=== PATIENT | male | born 1965 | race Caucasian/White ===

== ENCOUNTER 2022-05-19 13:41 | Outpatient (REF) | payer OTHER, SELFPAY ==
[2022-05-19 15:57] LABS: Abs Immature Grans 0.05 10^3/uL (0.0-0.06); Absolute Basophil Count 0.06 10^3/uL (0.0-0.2); Absolute Eosinophil Count 0.19 10^3/uL (0.0-0.7); Absolute Lymphocyte Count 1.47 10^3/uL (1.2-3.4); Absolute Monocyte Count 0.63 10^3/uL (0.1-0.8); Absolute Neutrophil Count 4.05 10^3/uL (1.2-6.7); Basophils % 0.9; Eosinophils % 2.9; HCT 54.5 % (40.0-50.0); HGB 18.5 g/dL (13.5-17.5); Immature Grans % 0.8; Lymphocytes % 22.8; MCH 32.4 pg (27.0-33.0); MCHC 33.9 % (32.0-36.0); MCV 95 fL (80-95); MPV 10.8 fL (8.0-11.0); Monocytes % 9.8; Neutrophils % 62.8; Platelet Count 157 10^3/uL (130-400); RBC 5.71 10^6/uL (4.36-5.78); RDW 11.9 % (11.8-14.1); WBC 6.45 10^3/uL (4.4-10.8)
[2022-05-19 17:30] LABS: ALT 47 U/L (16-63); AST 18 U/L (15-37); Albumin 3.8 g/dL (3.4-5.0); Alkaline Phosphatase 80 U/L (46-116); Anion Gap 10.1 mmol/L (3-11); BUN 20 mg/dL (7-18); Bilirubin, Total 0.4 mg/dL (0.2-1.0); CO2 24.9 mmol/L (21.0-32.0); CREATININE 0.9 mg/dL (0.70-1.30); Calcium 8.9 mg/dL (8.5-10.1); Calculated LDL 122 mg/dL (<100); Chloride 106 mmol/L (98-107); Cholesterol 200 mg/dL (<200); Estimated GFR 98.38 (mL/min/1.73m2); Glucose 109 mg/dL (74-106); HDL Cholesterol 49 mg/dL (40-60); Potassium 4.5 mmol/L (3.5-5.1); Sodium 141 mmol/L (136-145); Total Protein 7.4 g/dL (6.4-8.2); Triglyceride 145 mg/dL (<150)
== END 2022-05-19 13:42 | disposition home or self-care (01) ==
LOC: NCHCN 13:41
PROVIDERS: Visit Provider Family Medicine
DX: R03.0 Elevated blood-pressure reading, without diagnosis of hypertension (principal); M54.59 Other low back pain; R79.89 Other specified abnormal findings of blood chemistry
CPT/HCPCS: 80053; 80061; 85025

== ENCOUNTER 2022-06-28 15:08 | Outpatient (CLI) | payer OTHER, SELFPAY ==
--- NOTE | 2022-06-28 14:45 | DI.RAD_ITS ---
Exam(s) XR PELVIS AP EXAM: XR PELVIS AP CLINICAL HISTORY: THR planning. TECHNIQUE: 2D digital imaging was performed. COMPARISON: CR from 08/17/2021 FINDINGS: BONES: No acute fracture is present. No bony destructive lesion is seen. JOINTS: No dislocation present. Moderately severe degenerative changes are seen in the right hip judith acterized by joint space narrowing and bony hypertrophy. There are stable marked degenerative change s of the left hip with loss of the joint space and bony hypertrophy. There also appears to be some v olume loss in the left femoral head. This is unchanged. The symphysis pubis is unremarkable. SOFT TISSUE: Normal. IMPRESSION: Stable degenerative changes of the hips, left greater than right. DATA REPOSITORY: RADIATION DOSE DELIVERED:
== END 2022-06-28 15:09 | disposition home or self-care (01) ==
LOC: DIORS 15:08
PROVIDERS: PCP Family Medicine; Visit Provider Physician Assistant
DX: M16.12 Unilateral primary osteoarthritis, left hip (principal); M25.552 Pain in left hip
CPT/HCPCS: 72170

== ENCOUNTER 2022-07-09 01:32 | Outpatient (CLI) | payer OTHER, SELFPAY ==
[2022-07-09 13:13] LABS: HCT 49.7 % (40.0-50.0); HGB 17.2 g/dL (13.5-17.5); MCH 33.1 pg (27.0-33.0); MCHC 34.6 % (32.0-36.0); MCV 96 fL (80-95); MPV 9.6 fL (8.0-11.0); Platelet Count 152 10^3/uL (130-400); RDW 12.1 % (11.8-14.1); RDW-SD 43.1 fL; WBC 6.13 10^3/uL (4.4-10.8)
[2022-07-09 13:57] LABS: Anion Gap 12.1 mmol/L (3-11); BUN 19 mg/dL (7-18); CO2 25.9 mmol/L (21.0-32.0); Calcium 8.7 mg/dL (8.5-10.1); Chloride 107 mmol/L (98-107); Glucose 125 mg/dL (74-106); Sodium 145 mmol/L (136-145)
== END 2022-07-09 01:33 | disposition home or self-care (01) ==
LOC: LBO 01:32
PROVIDERS: PCP Family Medicine; Visit Provider Student in an Organized Health Care Education/Training Program
DX: M25.552 Pain in left hip (principal); M16.12 Unilateral primary osteoarthritis, left hip; Z01.818 Encounter for other preprocedural examination; Z01.812 Encounter for preprocedural laboratory examination
CPT/HCPCS: 36415; 80048; 85027

== ENCOUNTER 2022-07-14 05:44 | Day surgery (SDC) | payer OTHER, SELFPAY ==
--- NOTE | 2022-07-12 16:17 | PDOC.ANES ---
Date of service: 07/12/22 Time of Service: 16:17 Anesthesia Note Report Anesthesia Note: Reached out to this patient today via phone call as preop RN let us know he was having some anxiety about DOS. Patient did let me know he was anxious about it but did not have any specific anesthesia questions or concerns at this time. I recommended that the patient should write down any questions or concerns as they came up and to bring them with him on DOS. Patient verified he understood and that we will be seeing him DOS.
[2022-07-14] VITALS (11 sets, daily range): BP systolic 106–154; BP diastolic 79–112; PULSE 56–75; RESP 15–20; TEMP 36.2–36.6; O2SAT 94–97; BMI 28.4
--- NOTE | 2022-07-14 06:26 | W.ANESPRE ---
General Info Date of Service Date Performed: 07/14/22 Height: 5 ft 9 in Weight: 87.4 kg Body Mass Index (BMI): 28.4 Surgical Procedure: Operation Date: 07/14/22 08:05 Proposed Procedure Side Surgeon p Hip Total Hip Anterior, ACTIS (08/04 High) Left Angel Mantilla MD Meds Allergies and Home Medications Allergies Allergy/AdvReac Type Severity Reaction Status Date / Time No Known Allergies Allergy Verified 07/14/22 06:23 Home Medication Medication Instructions Recorded clobetasol 0.05 % topical ointment topical 07/12/22 acetaminophen 500 mg tablet 1,000 mg PO TID #90 tabs 07/14/22 aspirin 81 mg tablet,delayed 81 mg PO BID #60 tabs 07/14/22 release celecoxib 200 mg capsule 200 mg PO BID #60 caps 07/14/22 dexamethasone 4 mg tablet 4 mg PO DAILY #2 tabs 07/14/22 oxycodone 5 mg tablet 5 mg PO Q4H PRN pain #20 tabs 07/14/22 pantoprazole 40 mg tablet,delayed 40 mg PO DAILY #30 tabs 07/14/22 release Current Visit Medications: Current Medications Generic Name Dose Route Start Last Admin Trade Name Freq PRN Reason Stop Dose Admin Acetaminophen 1,000 mg 07/14/22 06:00 Acetaminophen 500 Mg Tab PO 07/14/22 16:00 PREOP ABDI Celecoxib 400 mg 07/14/22 06:00 Celecoxib 200 Mg Cap PO 07/14/22 16:00 PREOP ABDI Tranexamic Acid 1,000 mg/ 60 mls @ 360 mls/hr 07/14/22 06:00 Sodium Chloride IV 07/14/22 16:00 PREOP ABDI Ringer's Solution 1,000 mls @ 80 mls/hr 07/14/22 06:00 IV 08/12/22 23:59 INFUSION ABDI Cefazolin Sodium/Dextrose 2 gm in 50 mls @ 100 mls/hr 07/14/22 06:00 Ancef Duplex IVPB 08/12/22 23:59 PREOP ABDI IV Miscellaneous Supplies 1 each 07/14/22 06:00 Iv Access IV 08/12/22 23:59 DIRECTED ABDI Sodium Chloride 0 ml 07/14/22 06:00 Normal Saline Flush 10 Ml Syr IV 08/12/22 23:59 PRN PRN Sodium Chloride 0 ml 07/14/22 06:00 Normal Saline 10 Ml Vial IJ 08/12/22 23:59 DIRECTED PRN Sterile Water 0 ml 07/14/22 06:00 Water,Injection,Sterile 10 Ml Vial IJ 08/12/22 23:59 DIRECTED PRN PFSH Active Problems Active Problems: Problem Status Onset Code Osteoarthritis of left hip M16.12 Medical History Medical History Chronic low back pain History of skull fracture Psoriasis Psoriatic arthritis Surgical History Surgical History (Updated 07/14/22 @ 06:26 by Lucia Malone) History of shoulder surgery Left Tobacco Smoking/Tobacco Use Status: Current-Occasional Tobacco Type: cigarettes Alcohol Alcohol Intake: current Alcohol intake frequency: a few times a week Substance Use Substance use: Daily Substance use type: marijuana Details: Per patient he uses it regularly for the hip pain. Vital Signs and Lab Results Lab Results Blood Type / Crossmatch: No Data to Display Complete Blood Count: White Blood Count 6.13 10^3/uL (4.4-10.8) 07/09/22 13:10 Red Blood Count 5.20 10^6/uL (4.36-5.78) 07/09/22 13:10 Hemoglobin 17.2 g/dL (13.5-17.5) 07/09/22 13:10 Hematocrit 49.7 % (40.0-50.0) 07/09/22 13:10 Platelet Count 152 10^3/uL (130-400) 07/09/22 13:10 Complete Metabolic Panel: Sodium 145 mmol/L (136-145) 07/09/22 13:10 Potassium 4.0 mmol/L (3.5-5.1) 07/09/22 13:10 Chloride 107 mmol/L (98-107) 07/09/22 13:10 Carbon Dioxide 25.9 mmol/L (21.0-32.0) 07/09/22 13:10 BUN 19 mg/dL (7-18) H 07/09/22 13:10 Creatinine 1.0 mg/dL (0.70-1.30) 07/09/22 13:10 Est GFR (CKD-EPI 2020) 86.70 (mL/min/1.73m2) 07/09/22 13:10 Calcium 8.7 mg/dL (8.5-10.1) 07/09/22 13:10 Glucose 125 mg/dL (74-106) H 07/09/22 13:10 Liver Function Panel: No Data to Display Coagulation Panel: No Data to Display Cardiac Panel: No Data to Display Arterial Blood Gas: No Data to Display Venous Blood Gas: No Data to Display Pancreas Panel: No Data to Display Thyroid Panel: No Data to Display Infectious Disease: No Data to Display Blood Cultures: No Data to Display Toxicology Panel: No Data to Display Anesthesia Assessment and Plan Anesthesia History Personal History: No History of Anesthesia Complications Family History: Family History Unknown Exercise Tolerance Exercise Tolerance: Metabolic Equivalents>4 Pertinent Negatives Pertinent Negatives: No Symptoms of GERD, No Major Cardiovascular Symptoms or Complaints, No Major Pulmonary Symptoms or Complaints and No History of CVA/TIA Cardiac & Pulmonary Exam Cardiac Exam: Normal S1/S2 Heart Sounds Pulmonary Exam: Clear Bilateral Breath Sounds Implantable Cardiac Device Does patient have a Pacemaker or an ICD?: No Airway Exam Known Difficult Airway: No Mallampati Class: 2 Mouth Opening: Normal (> 3cm) Thyromental Distance: Greater than 3 cm Neck Range of Motion: Full ROM Neck Circumference: Normal Teeth Condition: Generalized Poor Dentition ASA Classification ASA Score: ASA 2 Emergency Case?: No NPO Status NPO Status: NPO Clears >2 hours, Solids >8 hours Anesthesia Plan Resuscitation Status: Full Code Anesthesia Technique: General Anesthesia Airway Planned: Natural Airway Monitors Used: Standard Monitors
[2022-07-14] MEDS: Acetaminophen 500 MG TAB 1000 MG PO (06:45)
[2022-07-14] MEDS: Celecoxib 200 MG CAP 400 MG PO (06:46)
[2022-07-14] MEDS: Lactated Ringers 1,000 ML 80 ML IV (07:00)
--- NOTE | 2022-07-14 07:24 | W.PM.DSUDISC ---
Date of service: 07/14/22 Time of Service: 07:24 Discharge Plan Disposition Patient Disposition: Home Condition: Good Discharge Details Reason For Visit: L RUTHY Attending Provider: Angel Mantilla Primary Care Provider: Brad Ritter Home Meds and New Rx's Prescriptions: New celecoxib 200 mg capsule 200 mg PO BID Qty: 60 0RF aspirin 81 mg tablet,delayed release (DR/EC) 81 mg PO BID Qty: 60 0RF acetaminophen 500 mg tablet 1,000 mg PO TID Qty: 90 3RF pantoprazole 40 mg tablet,delayed release (DR/EC) 40 mg PO DAILY Qty: 30 0RF dexamethasone 4 mg tablet 4 mg PO DAILY Qty: 2 0RF oxycodone 5 mg tablet 5 mg PO Q4H MDD 6 tabs PRN (Reason: pain) Qty: 20 0RF Continued clobetasol 0.05 % ointment TOPICAL Patient Comments: APPLY TO AFFECTED SKIN ON THE BODY TWICE DAILY TUESDAY-TUESDAY, STOP ON , REPEAT NEEDED Discontinued naproxen 250 mg tablet 250 mg PO BID PRN Discharge Instructions Additional Instructions: Total Hip Discharge Instructions Activity: The most important activity is to walk. You should try to take short walks a few times a day. You have no restrictions on movement or positioning, but do not try to force what you do. You will find some stiffness and weakness with hip flexion (lifting your knee). Do not try to strengthen this too early, continue to practice walking and stairs and this will come. - Outpatient physical therapy can be helpful to help return you to a normal gait and improve your flexibility and strength. This can start around 2 weeks. For some patients, it?s not necessary. Usually this is determined at the time of discharge or at the first post-operative visit. - You should wear the BALAJI hose on both legs for 2 weeks. Dressing: Keep the surgical dressing in place for at least one week. After the first week it may be removed and replace with light gauze and tape or nothing. It may get wet after 3 days but avoid soaking the dressing. If it gets wet, just lightly pat dry. It is important to always keep some gauze between skin folds, especially when you are sitting. Spend some time with the wound exposed when you are lying flat as the incision does wrinkle onto itself. Medications: - You should take Tylenol and an anti-inflammatory Celebrex as your primary pain control medications. If the Celebrex is too expensive or not covered, please call the office for another alternative (Advil/Ibuprofen or Naproxen/Aleve). - You have been prescribed a stronger pain medication Oxycodone for breakthrough pain, take as needed as prescribed. - You have also been prescribed a stomach acid reduction agent Pantoprozole to help reduce stomach acid and reflux. - You have also been prescribed Decadron to help with post-operative nausea and pain. You will take this for two days starting tomorrow. - You will be taking Aspirin 81mg twice a day for DVT prevention unless instructed otherwise. - If you have constipation you should take Colace or Miralax (both [id number]). It takes most people 3-4 days to have a bowel movement. Follow-up: 2 weeks If you have any acute concerns or questions, please do not hesitate to contact the office at [phone]. You may contact Dr. Mantilla with any questions after hours through the hospital at [phone] or on his cell phone at [phone]. Referrals: Angel Mantilla MD [ [facility] STAFF PHYSICIAN] - Equipment/Supplies: Walker Activity:: Activity as Tolerated Shower/Bathe:: 72 hours Diet:: As Tolerated Discharge Orders Discharge Orders: Discharge Order (Routine); Ordered 07/14/22 Ordered By: Warren Elizondo DS: Diagnosis Discharge Diagnosis (1) Osteoarthritis of left hip: Status: Acute
[2022-07-14] MEDS: ceFAZolin 2 GM/50 ML BAG IVPB (07:50)
--- NOTE | 2022-07-14 09:11 | DI.RAD_ITS ---
Exam(s) XR HIP LT IN OR EXAM: XR HIP LT IN OR CLINICAL HISTORY: Osteoarthritis of left hip. TECHNIQUE: 2D and realtime digital imaging was performed. COMPARISON: No exams were available for comparison FINDINGS: A left hip prosthesis has been placed. The alignment appears satisfactory. Please see procedure note for details. Fluoro time: 33.6seconds RADIATION DOSE DELIVERED: Zakiyar=3.69 mGy
--- NOTE | 2022-07-14 09:55 | ROE_ITS ---
Date of service: 07/14/22 Time of Service: 09:10 Operative Note Operative Note DATE OF PROCEDURE: 07/14/22 PRE-OP DIAGNOSIS: Left Hip Osteoarthritis POST-OP DIAGNOSIS: same PROCEDURE: Left Anterior Total Hip Arthroplasty with Intraoperative Navigation SURGEON: Angel Mantilla ARTILLERY SPECIALIST: Warren Elizondo ANESTHESIA TYPE: Spinal Refer to Anesthesia Record PATHOLOGY: none sent TOURNIQUET TIME: 0 COMPLICATIONS: None Patient was transported to: PACU Patient's condition: stable Implants: 1. Depuy Deepwater Acetabular Component, 52mm 2. Depuy Acetabular Liner, [id number] 3. Depuy Actis High Offset Collared Femoral Stem, Size 6 4. Depuy Altrx Ceramic Femoral Head, Size 36+5mm Indications: I have seen Yazan in clinic for symptoms of hip arthritis, confirmed with radiographic findings. Yazan has exhausted nonoperative methods and was having significant limitations in daily function and desired better function and less pain. I discussed the technical details of a hip replacement. I explained the risks of the procedure to include, but not limited to, bleeding, infection, karri n, stiffness, fracture, damage to nerves and vessels, damage to muscles and tendons, loosening, instability, leg length inequality, need for repeat procedure, blood clot and cardiopulmonary demise. Despite these risks, Yazan elected to proceed. Findings: There was significant signs of arthritis throughout the hip. Large osteophytes present around the femoral head/neck junction as well as the acetabulum. Procedure Description: Yazan was greeted in the preoperative holding area where the correct side was identified and marked. The consent was reviewed with the patient and signed. The history and physical was updated. All questions were answered. He was taken back to the operating room. A spinal anesthestic was then administered. The feet were wrapped with cast padding and Coban and then placed into the boot liners and then into the boots. Care was taken to protect the skin and make sure the heels were fully down and the boots were stable. The patient was then positioned onto the HANA table. Both legs were held in a neutral position. SCDs were applied. The patient was then slid down onto a peroneal post. Prophylactic antibiotics in the form of Cefazolin were administered. 1g of Tranxemic Acid was given intravenously within 30 minutes of incision. The left leg was then prepped with Chloraprep and draped in a standard fashion. A second prep with Chloraprep was performed prior to placement of a shower-curtain type drape with Iodine impregnated skin protection. A timeout to confirm correct identity, side and site, procedure, allergies, anesthesia, and medical concerns was performed. An obliquely oriented incision was made starting lateral to the ASIS and running distal over the Tensor Fascia Tiana (TFL) muscle belly toward the fibular head, approximately 10cm. The skin and soft tissue was dissected sharply, through Thomas?s fascia, and to the fascia of the TFL. With the fascia and superior border of the IT band identified, the fascia was incised with a new knife just above any perforators from the IT band. The TFL muscle belly was bluntly dissected away from the fascia and moved laterally. The fat between TFL and rectus was identified to ensure the dissection was not within the TFL. Blunt dissection created space between abductors and the capsule and retractor was placed over the lateral femoral neck. The fibers of the rectus femoris tendon were identified and these were freed from the anterior capsule. A second cobra retractor was placed around the medial femoral neck. The TFL was further retracted laterally to show the deep fascia. Careful dissection through this layer identified three main crossing vessels of the lateral femoral circumflex. These were cauterized in multiple locations and then cut without any noticeable bleeding. The TFL was further released bluntly from the deep fascia to expose anterior hip capsule and fat The Gokul orthopaedic retractor was then placed beneath the TFL and against sartorius and medial soft tissues to protect and retract the soft tissues. A T-capsulotomy was then performed starting at the superior lateral acetabulum and moving distally to the intertrochanteric ridge. These capsular flaps were tagged with a No. 1 Ethibond and elevated from within. The capsular flaps were released to the shoulder of the lateral neck and to the lesser trochanter to give excellent visualization of the proximal femur. This showed large osteophytes about the femoral neck. A neck osteotomy was performed using an oscillating saw based on preoperative templates. This cut started in the shoulder and of the lateral neck and exited medially. The saw was at all times directed medially to avoid injury to the greater trochanter. Gross traction was applied to the leg and the osteotomy opened. The femoral head was removed with a corkscrew, making sure to protect the TFL on its exit. Traction was released after head removal. This was measured on the back table to determine the starting reamer size. Portions of the rectus obscuring visualization were minimally elevated off the superior acet abulum. An anterior retractor was placed over the anterior wall between capsule and labrum and attached to the Gripper retraction system. The femur was rotated to 90 degrees and medial capsule was fully released until the lesser trochanter was palpable and visible; the femur was returned to 30 degrees. A posterior retractor was placed similarly between capsule and labrum. This provided excellent visualization. There was a large floor osteophyte which obliterated the cotyloid fossa. Large osteophytes are also present surrounding the acetabulum with a loose osteophyte anteriorly associated with remnant labrum. There was significant chondromalacia of the superior acetabulum. Acetabular reaming began with a 48mm reamer. This first reaming was directed anterior to posterior and medial to get down to the true floor. This was inspected and reamed until the true floor was reached. The anterior retractor was then released and entry and exit was provided by traction on the capsular flaps. I then reamed sequentially up to a 52mm reamer where good fit was obtained. The larger reamers were oriented based on anatomical reference of the anterior and lateral briscoe to ensure proper abduction and anteversion. Positioning and size was confirmed with the fluoroscopy. A 52mm Depuy Deepwater acetabular component was selected. The acetabulum was reamed around the periphery with the selected acetabular size to prevent a rim fit. The deep tissues were irrigated. The acetabular component was then impacted in a position of about 40-45 degrees of abduction and 15-20 degrees of anteversion, using the patient?s anatomy as the ultimate landmark. Fluoroscopy was used to confirm this. There was excellent patient care associate of the acetabular component and the inserting handle was removed. The acetabular liner, Depuy [id number] polyethylene liner, was inserted and lined up with the tines of the acetabular component. There was no soft tissue interposition. I then used a curved osteotome to remove osteophytes from around the acetabulum from anterior to posterior. The liner was then impacted into position and confirmed to be well-seated. A portion of the maria c-articular cocktail was then injected around the acetabulum into the capsule and periosteum. This cocktail consisted of 123mg of Ropivacaine, 0.25mg of Epinephrine, 0.04mg of Clonidine, and 15mg of Ketorolac, diluted to 50cc. The leg was rotated to 120 degrees. Any remaining medial capsule was released until the lesser trochanter was easily palpable. A retractor was placed medially. The lateral capsule was further released into the shoulder to allow access to the greater trochanter. A Javed retractor was placed over the greater trochanter which allowed the trochanter to flip in front of the capsule for excellent exposure. The leg was brought down into maximal extension and 20 degrees of adduction while ensuring there was no impingement on the acetabulum. Any remnant capsule within the trochanter was released. Piriformis and obturator externis were identified and protected. There was excellent access to the proximal femur. The lateral neck remnant was removed with a rongeur. A blunt canal probe was used to identify the canal and trajectory for later broaching. A box osteotome initiated the broach course. A small curved rasp and a curved curette were used to work laterally. Broaching then began with a starter Actis broach. This was inserted manually around the trochanter and into the canal before mallet blows. The broach was seated to the neck cut level based on the neck cut and the preoperative template. Sequential broaching was continued with the LinguaNextse pneumatic broaching device until a tight fit was obtained with good rotational control of the femur. A trial high offset neck was inserted along with a +5 trial head. The leg was brought out of extension and adduction and then reduced with traction and internal rotation. The leg was stable anteriorly in a position of 30 degrees of extension and 90 degrees of external rotation. Fluoroscopy was used to ensure there was no fracture and the stem was seated well. Leg lengths were checked with an AP pelvis and pelvic reference points. [employer] navigation system was used to confirm appropriate positioning and leg length and offset. Once content with the desired offset and leg lengths, the leg was brought back into extension, external rotation and adduction. The periosteum and surrounding tissue was injected with remaining portion of the maria c-articular cocktail. The proximal femur was irrigated as well as the deep tissues. The Depuy Actis high offset collared stem, size 6, was then manually inserted into the proximal femur making sure to control rotation. It was then malleted into position with light blows, giving breaks to allow bone expansion and decrease risk of fracture. The selected Depuy Altrx Ceramic Head, size 36+5mm, was then placed onto the clean and dry trunnion and secured with impaction onto the tapered fit. The leg was brought back out of extension and adduction and reduced with traction and internal rotation. Stability was confirmed with no shuck at 90 degrees of external rotation and 30 degrees of extension. No impingement through range of motion arc. Final x-ray images were obtained with fluoroscopy to confirm adequate positioning and no intraoperative fracture. The deep tissues were thoroughly irrigated with Surgiphor, betadine solution. This was allowed to sit in the wound for 3 minutes before being thoroughly irrigated out with normal saline. The capsule was then reapproximated with the previously placed Ethibond sutures. The TFL fascia was finally closed with a No. 2 Stratafix, barbed suture. Deep tissues were then reapproximated with 0 Vicryl and a running 2-0 Vicryl. The skin was closed with a running 4-0 Monocryl in a subcuticular fashion. This was reinforced with skin glue. A Mepilex silver dressing was applied. At the end of the case, all counts were correct. Yazan was transferred to the hospital bed without difficulty and suffering no apparent complication. Yazan has a good prognosis. Physical therapy will start today and without restrictions, weight-bearing as tolerated. Aspirin 81mg BID will be used for DVT prophylaxis.
--- NOTE | 2022-07-14 12:45 | IN_ITS ---
PT Notes Visit Reasons: L [facility] Physical Therapy Day Surgery Initial Evaluation Date: 07/14/2022 Referring Doctor: VAMSI Dave PT Orders: PT CONSULT: S/P surgery Precautions: WBAT on left LE with AD. Patient Profile/Admitting Diagnosis: Rc is a 57-year-old male with degenerative joint disease of the left hip and is status post left anterior total hip arthroplasty on postoperative day 0. PMHX: All Active Problems? Osteoarthritis of left hip (Acute) Medical History? Chronic low back pain Psoriasis Psoriatic arthritis Social History/Home Situation: Lives with in a private home with 3 steps to enter with a rail on one side and a wall on the other side. Works as an artist. Has a barn that is 60 yards away from his house where his art studio is. Equipment Owned/DME: None Subjective: Reports stiffness about the left hip that resolved with walking. Objective: General Observation: Supine in bed. Mepilex Ag over surgical incision. TEDS to B legs. present throughout session. Mental Status: Alert and oriented x4 Pain: 1-2/10 in the L hip and thigh ROM: Right Lower Extremity: Hip flexion WFL. Hip abduction WFL. Knee flexion WFL. Ankle dorsiflexion WFL. Ankle plantarflexion WFL. Left Lower Extremity: Hip flexion lacks the last 25% of available AROM. Hip abduction WFL. Knee flexion WFL. Ankle dorsiflexion WFL. Ankle plantarflexion WFL. Strength: Right Lower Extremity: Hip flexors 5/5. Hip abductors 5/5. Knee flexors 5/5. Knee extensors 5/5. Ankle dorsiflexors 5/5. Ankle plantarflexors 5/5. Left Lower Extremity:Hip flexors 3-/5. Hip abductors 4-/5. Knee flexors 4/5. Knee extensors 4/5. Ankle dorsiflexors 5/5. Ankle plantarflexors 5/5. Sensation: Intact as to pain and light pressure in bilateral lower extremities Bed Mobility/Transfers: Supine to sit standby assist Sit to stand contact-guard assist Stand to sit standby assist Bed to chair standby assist Gait: Tolerated level surface ambulation of 150 feet using front wheeled walker with step through gait pattern requiring only standby assist with report of decreased stiffness about the left knee. No shortness of breath. Did demonstrate some asymmetry in step due to residual and numbness in bilateral feet but no loss of balance. Stairs: Ascended and descended 6 x 4 inch steps and 4 x 6 inch steps while holding onto bilateral rails with step to gait pattern requiring only standby assist. Balance: Static Sitting: Normal Dynamic Sitting: Normal Static Standing: Fair Dynamic Standing: Fair Special Tests: Mobility Limitations Standardized Measure [facility] AM-PAC 6 clicks Basic Mobility Inpatient Short Form: Raw Score: 23 CMS Score: 11% deficit Informed Consent/Education: Patient instructed in purpose of PT consult. Packet containing RUTHY exercise protocol has been given to patient. Education and training on initial set of exercises that can be done at home have been completed with patient. THERA EX: Guided patient on safe and correct performance of early set of exercises to maintain joint flexibility and maximize mobility performance at home: Access Code: [email or web address] URL: [email or web address] Date: 07/14/2022 Prepared by: Inna Fan Exercises - Supine Gluteal Sets - 1 x daily - 7 x weekly - 1 sets - 10 reps - 5 hold - Supine Heel Slide - 1 x daily - 7 x weekly - 1 sets - 10 reps - 5 hold - Supine Ankle Pumps - 1 x daily - 7 x weekly - 1 sets - 10 reps - 5 hold - Seated March - 1 x daily - 7 x weekly - 1 sets - 10 reps - 5 hold - Seated Long Arc Quad - 1 x daily - 7 x weekly - 1 sets - 10 reps - 5 hold Assessment: Patient requires the use of a front wheeled walker to maximize independence and reduce fall risk. Patient presents with clinical signs and symptoms consistent with current/admitting diagnoses that have resulted to mobility limitations, gait instability, generalized weakness, and impairment of motor control as demonstrated by the following impairment level findings: 1. Decreased strength to left hip major muscle groups 2. Impaired standing balance 3. Limitation of joint range of motion in left hip Impairments are contributing to the following functional limitations: 1. Inability to safely ambulate without assistive device 2. Increase completion time for mobility ADL performance 3. Increased fall risk Patient is assessed as a [id number] moderate complexity based on the following: History: 57-year-old male with impairment level findings, functional limitations, and past medical history as indicated above Examination: Demonstrable impairment in strength, balance, and mobility level with underlying impairments and functional limitations as documented above Presentation: Evolving Decision Makin moderate complexity Goals: N/A. PT evaluation and 1-2 treatment sessions only for functional mobility training using recommended AD and for HEP instruction. Plan of Care/Treatment Plan: N/A. PT evaluation and 1-2 treatment session only for functional mobility training using recommended AD and for HEP instruction. DISCHARGE RECOMMENDATIONS: Home when medically cleared by orthopedic surgeon. Recommend outpatient PT services in order to optimize functional mobility outcomes and facilitate return to independent community ambulation without an assistive device. TREATMENT CODE/TIME: [id number] x 25 minutes beginning at 12:50 PM Thank you for the opportunity to participate in the care of this patient. Inna Fan PT, DPT, CLT [facility] [place], [place]
--- NOTE | 2022-07-14 15:11 | W.ANESPOSTOP ---
Postoperative Evaluation Date, Time and Location Date Performed: 07/14/22 Time Performed: 15:11 Patient Location: Day Surgery Unit Vital Signs Most Recent Imported Vital Signs: Most Recent Vital Signs Temp Pulse Resp BP Pulse Ox 36.2 C L 75 18 121/94 H 96 07/14/22 13:15 07/14/22 13:15 07/14/22 13:15 07/14/22 13:15 07/14/22 13:15 Pain Score Most Recent Pain Score: Most Recent Pain Score Pain Level 0 07/14/22 13:15 Assessment Mental Status: Awake (Alert & Oriented to Patient Baseline) Airway and Respiratory Function: Patent airway with normal (patient baseline) respiratory exam Cardiovascular Function: Hemodynamically Stable Hydration Status: Adequately Hydrated Nausea & Vomiting: No Nausea or Vomiting Pain: Pt. Denies Any Pain Peripheral Nerve Block: Patient did not receive a nerve block Postoperative Comments:: Patient seen earlier today and was doing well
== END 2022-07-14 13:48 | disposition home or self-care (01) ==
PROVIDERS: PCP Family Medicine; Visit Provider Student in an Organized Health Care Education/Training Program
PROC: (CPT 27130; principal; 2022-07-14 07:45)
DX: M16.12 Unilateral primary osteoarthritis, left hip (principal)
CPT/HCPCS: 27130; 20985; 97162; 73501; J0690; J1100; J2250; J2405; J2704

== ENCOUNTER 2022-07-29 10:50 | Outpatient (CLI) | payer OTHER, SELFPAY ==
--- NOTE | 2022-07-29 10:30 | DI.RAD_ITS ---
Exam(s) XR HIP LT COMPLETE AP PELVIS EXAM: XR HIP LT COMPLETE AP PELVIS CLINICAL HISTORY: 1ST POST OP L RUTHY. TECHNIQUE: 2D digital imaging was performed. COMPARISON: CR XR PELVIS AP from 06/28/2022 FINDINGS: Two views Satisfactory position alignment of the components of the recently placed left hip prosthesis. No fra cture nor loosening evident. IMPRESSION: Satisfactory appearance. DATA REPOSITORY: RADIATION DOSE DELIVERED:
== END 2022-07-29 10:51 | disposition home or self-care (01) ==
LOC: DIORS 10:50
PROVIDERS: PCP Family Medicine; Visit Provider Student in an Organized Health Care Education/Training Program
DX: Z96.642 Presence of left artificial hip joint (principal); Z47.1 Aftercare following joint replacement surgery
CPT/HCPCS: 73502